=== PATIENT | female | born 1955 | race Caucasian/White ===

== ENCOUNTER 2018-05-04 07:29 | Observation (INO) | payer OTHER ==
[2018-05-04] MEDS ORDERED: NS 1,000 ML IV ONE (07:32)
[2018-05-04] MEDS ORDERED: DIAZEPAM 5 MG TAB PO ONE (07:32)
[2018-05-04] MEDS ORDERED: FAMOTIDINE 20 MG TAB PO ONE (07:32)
[2018-05-04] MEDS ORDERED: diphenhydrAMINE 25 MG CAP PO ONE (07:32)
[2018-05-04] MEDS ORDERED: ASPIRIN EC 325 MG TAB PO ONE ×2 (07:32→09:57)
[2018-05-04 08:07] LABS: PLATELET COUNT 250 10^3/uL (150-400)
[2018-05-04] MEDS ORDERED: MIDAZOLAM 2 MG/2 ML VIAL ONE ×2 (08:13→09:10)
[2018-05-04] MEDS ORDERED: fentaNYL 100 MCG/2 ML INJ ONE ×2 (08:13→09:21)
[2018-05-04] MEDS ORDERED: LIDOCAINE 1% 300 MG/30 ML SDV ONE (08:13)
[2018-05-04] MEDS ORDERED: IOPAMIDOL (ISOVUE-370) 150 ML BTL IV ONE ×2 (08:13→09:21)
[2018-05-04 08:16] LABS: INR 0.97 (0.83-1.16); PROTIME(PATIENT) 13.1 SEC (12.0-15.0)
--- NOTE | 2018-05-04 08:23 | PDHPUP ---
History & Physical Update H&P update statement: This history and physical update is based on an assessment of the patient which was completed after admission or registration (within 24 hours), but prior to the surgery/procedure. H&P update: H&P reviewed & patient examined, no change in patient's condition since H&P completed
--- NOTE | 2018-05-04 08:23 | PDPROPOC ---
Sedation Plan of Care Sedation Plan of Care: vital signs stable, mental status noted, patient educated of risks, benefits, alternatives, patient can tolerate sedation ASA Classification: ASA 2 Planned drugs: fentanyl, midazolam Mallampati Score: Class 1 Mallampati Reference Image: Patient passed 3-3-2 rule?: Yes
[2018-05-04] MEDS ORDERED: BIVALIRUDIN 250 MG/5 ML VIAL IV ONE (09:02)
[2018-05-04] MEDS ORDERED: NITROGLYCERIN 1,500 MCG/15 ML VIAL MISC ONE (09:02)
[2018-05-04] MEDS ORDERED: TICAGRELOR 90 MG TAB ONE (09:39)
[2018-05-04] MEDS ORDERED: LORazepam 2 MG/ML INJ IVP PRN (09:57)
[2018-05-04] MEDS ORDERED: HYDROCODONE/APAP 5/325 TAB PO PRN (09:57)
[2018-05-04] MEDS ORDERED: TEMAZEPAM 15 MG CAP PO PRN (09:57)
[2018-05-04] MEDS ORDERED: TICAGRELOR 90 MG TAB PO ONE (09:57)
[2018-05-04] MEDS ORDERED: ATROPINE SULFATE 1 MG/10 ML SYR IVP PRN (09:57)
[2018-05-04] MEDS ORDERED: NITROGLYCERIN 0.4 MG BTL SL PRN (09:57)
[2018-05-04] MEDS ORDERED: ONDANSETRON 4 MG/2 ML VIAL IVP PRN (09:57)
[2018-05-04] MEDS ORDERED: OXYCODONE/APAP 5/325 TAB PO PRN (09:57)
--- NOTE | 2018-05-04 10:02 | CPEKG ---
Test Reason : OPEN Blood Pressure : / mmHG Vent. Rate : 078 BPM Atrial Rate : 078 BPM P-R Int : 139 ms QRS Dur : 120 ms QT Int : 376 ms P-R-T Axes : 080 -25 146 degrees QTc Int : 429 ms Sinus rhythm Probable right atrial enlargement Incomplete left bundle branch block Confirmed by Aubrey Montenegro ([id number]) on 05/04/2018 10:01:55 AM Referred By: Confirmed By:Aubrey Montenegro
--- NOTE | 2018-05-04 10:16 | CPIP ---
DATE OF PROCEDURE: 05/04/2018 PROCEDURES: 1. Coronary angiography. 2. Stenting of right coronary artery with Synergy drug-eluting stent. INDICATION: 1. Class 2-3 angina. 2. Abnormal nuclear stress test with a large area of inferior and apical ischemia making it high ris k. ACCESS: Patient was prepped and draped in sterile fashion. 1% lidocaine was used to anesthetize the right inguinal region. A 6-Australian introducer sheath was placed selectively in the right common femo ral artery via modified Seldinger technique. CORONARY ANGIOGRAPHY: A 6-Australian JL4 was advanced to left main coronary artery and images obtained. The left main coronary artery trifurcated into an LAD, ramus, and circumflex coronary arteries. The left main coronary artery appeared free of any significant disease. The left anterior descending co ronary artery had mild diffuse disease throughout. There was no stenosis greater than 20-25 percent. The left anterior descending coronary artery gave rise to 2 prominent diagonal branches. The 2nd d iagonal branch had a proximal 30% to 40% stenosis present. The ramus coronary artery was a moderate- to-large size vessel. The ramus coronary artery had a proximal 70% stenosis present. The circumflex coronary artery was a large vessel, but was nondominant. The circumflex coronary artery had an osti al 50% stenosis present. The remainder of the vessel is free of any significant disease. A 6-Australian JR4 was advanced to the right coronary artery and images obtained. The right coronary artery is dom inant. The right coronary artery had a single discrete 90% stenosis in the mid vessel. In addition, there was a single discrete 40-50 percent stenosis at the ostium of the PDA. The posterior lateral system appeared free of any significant disease. Percutaneous coronary intervention of the right coronary artery: A 6-Australian JR4 catheter with side h oles was advanced to the right coronary artery and images obtained. Angiography confirmed the presen ce of a 90% stenosis in the mid right coronary artery. A Luge wire was placed in the distal vessel a nd position verified by angiography. A 2.5 x 15 Emerge balloon was used to pre-dilate the lesion. F ollowup angiography demonstrated significant residual stenosis. A 3.0 x 20 synergy drug-eluting sten t was then placed across the lesion and deployed. Followup angiography demonstrated SHAGGY-3 flow and no residual stenosis. COMPLICATIONS: None. CONCLUSIONS: 1. Two-vessel coronary artery disease. 2. Status post successful stenting of the right coronary artery using Synergy drug-eluting stent. /[id number]/MODL
[2018-05-04] MEDS: CARVEDILOL 3.125 MG TAB PO SCH (18:37)
[2018-05-04] MEDS: TICAGRELOR 90 MG TAB PO SCH (21:08)
[2018-05-05 04:55] LABS: PLATELET COUNT 217 10^3/uL (150-400)
[2018-05-05 07:41] VITALS: BP 115/70
[2018-05-05] MEDS ORDERED: ASPIRIN EC 81 MG TAB PO SCH (09:00)
[2018-05-05] MEDS ORDERED: ATORVASTATIN CALCIUM 40 MG TAB PO SCH (09:00)
--- NOTE | 2018-05-05 09:11 | ASMTCMCOM ---
CM Note CM Note Notes: Chart reviewed for discharge planning purposes. 62 year old female admitted for planned CV intervention. Medically cleared for discharge to home. No current needs identified. CM available should needs arise. Plan: Dc to home independently. Date Signed: 05/05/2018 09:10 AM Electronically Signed By:Evi Benz RN
[2018-05-05] MEDS: CARVEDILOL 3.125 MG TAB PO SCH (09:39)
[2018-05-05] MEDS: TICAGRELOR 90 MG TAB PO SCH (09:41)
--- NOTE | 2018-05-05 14:05 | GDS ---
DISCHARGE DIAGNOSES: 1. Abnormal nuclear treadmill stress test with new-onset chest pain suggestive of CCS class 3 angina . 2. Abnormal ECG with a left bundle branch block of unknown chronicity. PROCEDURES: 05/04/2018 left heart catheterization which showed a dominant right coronary artery with a 90% midvessel stenosis status post PTCA and stenting with a 3.0 x 20 mm synergy drug-eluting stent , moderate residual disease involving a ramus intermedius with a proximal 70% stenosis. BRIEF HISTORY: Please see dictated H and P by Dr. Barajas for complete details. In brief, Ms. Jessica Prather is a 62-year-old female who presented in March with new-onset chest pain starting early in the year in July after a Shingrix vaccine. She started to note a cough and then symptoms of reflux where she would experience burning sensation in her epigastrium extending into the back of her throa t. Her symptoms would worsen with lying supine, as well as exercise. In February, she had an ECG th at found a new left bundle branch block. She was referred to Cardiology and had a nuclear stress arsenio t showing moderate intensity, medium-sized, reversible inferoapical and apical defect consistent with ischemia. She proceeded to left heart catheterization on 05/04/2018 with the above findings. HOSPITAL COURSE BY PROBLEM: 1. New-onset angina. She had noted both rest and stress symptoms. She proceeded to nuclear stress testing which showed the inferoapical and apical defect. She is status post PTCA and stenting after a 90% lesion was found in her right coronary artery. She was educated on the importance of dual anti platelet therapy. 2. CAD. She is being started on medical management with low-dose carvedilol, as well as atorvastati n. She will need followup labs for her atorvastatin in 6-12 weeks. Her LDL prior to starting atorva statin is 97. PHYSICAL EXAM: VITAL SIGNS: On day of discharge, blood pressure 115/70, heart rate 81, respirations 13, O2 saturation 94% on room air, temperature 97.6 degrees Fahrenheit. GENERAL: She is a very ple asant female, no apparent distress. HEAD: Normocephalic, atraumatic. HEART: Regular rate and rhyt hm. LUNGS: Clear. RIGHT GROIN SITE: Without ecchymosis, bruit, or hematoma. LABORATORY DATA: BMP with sodium 138, potassium 4.3, chloride 106, CO2 24, BUN 17, creatinine 0.9, g lucose 80, triglycerides 106, total cholesterol 173, LDL 97, HDL 55. CBC with WBC 6.8, hemoglobin 12 .3, hematocrit 36.5, platelet count 217. RESULTS PENDING: None. DIET: Per previous. DISCHARGE MEDICATIONS: Please see medication reconciliation. She can go home on her omeprazole, Sys tane, vitamin D3. Her new medications are Brilinta 90 b.i.d., carvedilol 3.125 p.o. b.i.d., atorvast atin 40 mg p.o. daily, and aspirin 81 mg p.o. daily. DISCHARGE INSTRUCTIONS: 1. Groin precautions were reviewed. 2. Cardiac rehabilitation recommended. 3. Follow up with our office in 1 week's time for groin check. 4. Follow up with Dr. Barajas as scheduled. /[id number]/MODL
--- NOTE | 2018-05-06 14:30 | CPEKG ---
Test Reason : OPEN Blood Pressure : / mmHG Vent. Rate : 078 BPM Atrial Rate : 078 BPM P-R Int : 155 ms QRS Dur : 122 ms QT Int : 453 ms P-R-T Axes : 084 -26 000 degrees QTc Int : 517 ms Sinus rhythm Left bundle branch block Confirmed by Aubrey Montenegro ([id number]) on 05/06/2018 2:30:16 PM Referred By: Confirmed By:Aubrey Montenegro
== END 2018-05-05 10:12 | disposition home or self-care (01) ==
LOC: FCATH 07:29 → F2W 09:58
PROVIDERS: ADMIT Internal Medicine Cardiovascular Disease; ATTEND Internal Medicine Cardiovascular Disease
PROC: B2111ZZ Fluoroscopy of Multiple Coronary Arteries using Low Osmolar Contrast (ICD-10-PCS; principal; 2018-05-04)
PROC: 027034Z Dilation of Coronary Artery, One Artery with Drug-eluting Intraluminal Device, Percutaneous Approach (ICD-10-PCS; principal; 2018-05-04)
PROC: 4A023N7 Measurement of Cardiac Sampling and Pressure, Left Heart, Percutaneous Approach (ICD-10-PCS; principal; 2018-05-04)
PROC: B2151ZZ Fluoroscopy of Left Heart using Low Osmolar Contrast (ICD-10-PCS; principal; 2018-05-04)
DX: I25.119 Atherosclerotic heart disease of native coronary artery with unspecified angina pectoris (principal); R93.1 Abnormal findings on diagnostic imaging of heart and coronary circulation; R94.30 Abnormal result of cardiovascular function study, unspecified
CPT/HCPCS: 92928; 93005; 93454; C1725; C1769; C1887; G0378; C1874; C9600; J0583; J1644; J2250; J3010; Q9967